=== PATIENT | male | born 1950 | race Caucasian/White ===

== ENCOUNTER 2018-05-28 19:31 | Inpatient (IN) | payer MEDICARE, OTHER ==
[~2018-05-28] VITALS: Ht 190.5 cm; Wt 81.8 kg
[2018-05-28 19:53] LABS: BASOPHILS % (AUTO) 0.1 % (0-1); EOSINOPHILS # (AUTO) 0.1 X10'3 (0-0.9); EOSINOPHILS % (AUTO) 0.9 % (0-6); HEMATOCRIT 40.8 % (42.0-52.0); HEMOGLOBIN 13.8 g/dl (14.0-17.9); LYMPHOCYTES # (AUTO) 0.3 X10'3 (1.1-4.8); LYMPHOCYTES % (AUTO) 3.1 % (21-51); MEAN CORPUSCULAR HEMOGLOBIN 32.2 PG (27.0-31.0); MEAN CORPUSCULAR HGB CONC 33.8 % (33.0-36.5); MEAN CORPUSCULAR VOLUME 95.2 FL (78-98); MEAN PLATELET VOLUME 9.5 FL (7.4-10.4); MONOCYTES # (AUTO) 0.2 X10'3 (0-0.9); MONOCYTES % (AUTO) 1.9 % (2-12); NEUTROPHILS # (AUTO) 8.3 X10'3 (1.8-7.7); PLATELET COUNT 202 X10'3 (140-440); RED BLOOD COUNT 4.29 X10'6 (4.70-6.10); RED CELL DISTRIBUTION WIDTH 13.3 % (11.5-14.5); WHITE BLOOD COUNT 8.9 X10'3 (4.5-11.0)
[2018-05-28 20:04] LABS: ALANINE AMINOTRANSFERASE 49 U/L (12-78); ALBUMIN 2.8 G/DL (3.4-5.0); ALBUMIN/GLOBULIN RATIO 0.7 (1.1-1.5); ALKALINE PHOSPHATASE 81 IU/L (46-116); ANION GAP 11 (8-16); ASPARTATE AMINO TRANSFERASE 87 U/L (10-37); BILIRUBIN,TOTAL 0.9 MG/DL (0.1-1.0); BLOOD UREA NITROGEN 10 MG/DL (7-18); BUN/CREATININE RATIO 7.6 (5.4-32.0); CALCIUM 8.3 MG/DL (8.5-10.1); CHLORIDE 101 MMOL/L (99-107); CREATININE 1.32 MG/DL (0.60-1.10); GLUCOSE 190 MG/DL (70-104); SODIUM 135 MMOL/L (135-145); TOTAL PROTEIN 6.7 G/DL (6.4-8.2); eGFR 54 ML/MIN
[2018-05-28 20:10] LABS: MAGNESIUM 1.8 MG/DL (1.5-2.4)
[2018-05-28] MEDS ORDERED: TIOT4MIS5 INH (20:34)
[2018-05-28] MEDS ORDERED: ALBU8HFA PO (20:34)
[2018-05-28] MEDS ORDERED: BUDE10.2 INH (20:34)
[2018-05-28] MEDS ORDERED: heparin 10,000 units/1 ML INJ IV ONE ×2 (21:10)
[2018-05-28 21:32] LABS: INR 1.1 INR; PARTIAL THROMBOPLASTIN TIME 37 SECONDS (22-32); PROTHROMBIN TIME 10.8 SECONDS (9.0-12.0)
[2018-05-28] MEDS: heparin 25,000 UNIT/250ml bag 250 ML IV SCH (21:47)
[2018-05-28] MEDS ORDERED: aspirin 325mg tablet PO ONE (22:10)
[2018-05-28 22:26] LABS: D-DIMER 1.08 MG/L FEU (0-0.50)
[2018-05-28] MEDS ORDERED: mag hydrox/Alum hydrox/simeth 30ml oral suspension PO PRN (22:35)
[2018-05-28] MEDS ORDERED: acetaminophen 325mg tablet PO PRN ×2 (22:35)
[2018-05-28] MEDS ORDERED: magnesium hydroxide 30ml (MOM) UD suspension PO PRN (22:35)
[2018-05-28] MEDS ORDERED: docusate sod 100mg capsule PO PRN (22:35)
[2018-05-28] MEDS ORDERED: haloperidol 5mg tablet PO PRN (23:25)
[2018-05-28] MEDS ORDERED: LORazepam 2 mg/ml vial IV PRN (23:25)
[2018-05-28] MEDS ORDERED: haloperidol lactate 5mg/ml inj IM PRN (23:25)
[2018-05-28] MEDS ORDERED: LORazepam 1 MG tablet PO PRN (23:25)
[2018-05-28 23:30] VITALS: BP 94/66
[2018-05-29] VITALS (7 sets, daily range): BP systolic 87–107; BP diastolic 60–81
[2018-05-29] MEDS: tirofiban 5mg in NS 100mL 100 ML IV SCH ×4 (00:10→20:09)
[2018-05-29] MEDS: morphine 2 MG/ML inj. syringe IV PRN ×3 (00:19→22:57)
[2018-05-29 02:15] LABS: BASOPHILS % (AUTO) 0.2 % (0-1); EOSINOPHILS # (AUTO) 0.1 X10'3 (0-0.9); EOSINOPHILS % (AUTO) 1.3 % (0-6); HEMATOCRIT 40.4 % (42.0-52.0); HEMOGLOBIN 13.7 g/dl (14.0-17.9); LYMPHOCYTES # (AUTO) 0.4 X10'3 (1.1-4.8); LYMPHOCYTES % (AUTO) 4.8 % (21-51); MEAN CORPUSCULAR HEMOGLOBIN 32.3 PG (27.0-31.0); MEAN CORPUSCULAR HGB CONC 33.8 % (33.0-36.5); MEAN CORPUSCULAR VOLUME 95.4 FL (78-98); MEAN PLATELET VOLUME 9.2 FL (7.4-10.4); MONOCYTES # (AUTO) 0.2 X10'3 (0-0.9); MONOCYTES % (AUTO) 2.8 % (2-12); NEUTROPHILS # (AUTO) 7.5 X10'3 (1.8-7.7); NEUTROPHILS % (AUTO) 90.9 % (42-75); PLATELET COUNT 210 X10'3 (140-440); RED BLOOD COUNT 4.23 X10'6 (4.70-6.10); RED CELL DISTRIBUTION WIDTH 13.1 % (11.5-14.5); WHITE BLOOD COUNT 8.3 X10'3 (4.5-11.0)
[2018-05-29 02:30] LABS: ALBUMIN 2.8 G/DL (3.4-5.0); ANION GAP 11 (8-16); BLOOD UREA NITROGEN 12 MG/DL (7-18); CALCIUM 8.4 MG/DL (8.5-10.1); CHLORIDE 101 MMOL/L (99-107); CHOL/HDL RATIO 2.1 (0.00-4.99); CHOLESTEROL 136 MG/DL (0-200); GLUCOSE 203 MG/DL (70-104); HDL CHOLESTEROL 66 MG/DL (35-60); LDL CHOLESTEROL 58 MG/DL (50-100); PHOSPHORUS 2.4 MG/DL (2.3-4.5); POTASSIUM 4.2 MMOL/L (3.5-5.1); SODIUM 135 MMOL/L (135-145); TOTAL CARBON DIOXIDE 22.7 MMOL/L (24-32); TRIGLYCERIDES 54 MG/DL (20-135); eGFR 60 ML/MIN
[2018-05-29 02:47] LABS: HEMOGLOBIN A1C 5.8 % (4.5-6.2)
[2018-05-29] MEDS: ipratropium/albuterol 3ml nebule NEB PRN ×3 (04:53→19:27)
[2018-05-29] MEDS: methylPREDNISolone sod succ/PF 40mg inj. IV SCH ×3 (07:59→15:54)
[2018-05-29] MEDS: thiamine 100mg tablet PO SCH (08:00)
[2018-05-29] MEDS ORDERED: CefTRIAXone 2gm/D5W 50ml 50 ML IV SCH (08:00)
[2018-05-29] MEDS ORDERED: azithromycin/NS 500mg/250ml 250 ML IV SCH (08:00)
[2018-05-29] MEDS: folic acid 1mg tablet PO SCH (08:00)
[2018-05-29] MEDS: multivitamins, therapeutics tablet PO SCH (08:00)
[2018-05-29] MEDS ORDERED: aspirin 325mg tablet PO SCH (08:30)
[2018-05-29] MEDS ORDERED: potassium Cl 40MEQ/NS 500ml 500 ML IV PRN ×2 (10:20)
[2018-05-29] MEDS ORDERED: magnesium Cl slow-release 64mg tablet PO PRN (10:20)
[2018-05-29] MEDS ORDERED: potassium Cl 20 mEq SR tablet PO PRN ×2 (10:20)
[2018-05-29] MEDS ORDERED: magnesium 4gm in 100ml NS 100 ML IV PRN (10:20)
[2018-05-29] MEDS: furosemide inj 100 MG in normal saline 100ml IV soln 90 ML IV SCH ×2 (12:07→21:10)
[2018-05-29] MEDS: heparin 25,000 UNIT/250ml bag 250 ML IV SCH ×2 (12:14→16:29)
[2018-05-29] MEDS: levoFLOXACIN-Levaquin 750MG/D5 150 ML IV SCH (12:23)
[2018-05-29] MEDS: heparin 10,000 units/1 ML INJ IV PRN (16:29)
[2018-05-29] MEDS: atorvastatin 20mg tablet PO SCH (17:35)
[2018-05-29] MEDS: lisinopril 10 MG tablet PO SCH (17:35)
[2018-05-29] MEDS ORDERED: iohexol 350 MG/ML 50ML vial IV ONE (19:49)
[2018-05-29] MEDS ORDERED: midazolam 2 mg/2 ml injection ONE (19:49)
[2018-05-29] MEDS ORDERED: iohexol 350MG/ML 100ml bottle IV ONE (19:49)
[2018-05-29] MEDS ORDERED: fentaNYL/PF 50MCG/1 ML 2ML syringe ONE (19:49)
[2018-05-29] MEDS ORDERED: LIDOcaine 1% (10mg/ml)w/preservative injection 20ml MDV ONE (19:49)
[2018-05-29] MEDS: carvedilol 6.25mg tablet PO SCH (20:00)
[2018-05-29] MEDS ORDERED: LIDOcaine 2% 10ml TOPICAL JELLY (Urojet) MM ONE (22:50)
[2018-05-29] MEDS ORDERED: HYDROcodone/acetaminophen 10/325mg tab PO PRN ×2 (23:00)
[2018-05-29] MEDS ORDERED: cyclobenzaprine 10mg tablet PO PRN (23:00)
[2018-05-29] MEDS ORDERED: magnesium hydroxide 30ml (MOM) UD suspension PO PRN (23:00)
[2018-05-29] MEDS ORDERED: nitroGLYCERIN 0.4mg SUBLingual tab SL PRN (23:00)
[2018-05-29] MEDS ORDERED: acetaminophen 325mg tablet PO PRN (23:00)
[2018-05-29] MEDS ORDERED: OXAZEpam 15mg capsule PO PRN (23:00)
[2018-05-30] VITALS (22 sets, daily range): BP systolic 78–104; BP diastolic 56–67
[2018-05-30] MEDS ORDERED: amiodarone 150mg/dext, iso-os 100 ML IV ONE (00:30)
[2018-05-30] MEDS: methylPREDNISolone sod succ/PF 40mg inj. IV SCH ×3 (01:03→16:25)
[2018-05-30] MEDS: amiodarone/D5 360MG/200ML BAG 200 ML IV SCH ×3 (01:03→19:42)
[2018-05-30] MEDS: morphine 4 MG/ML inj SYRINge IV PRN ×2 (01:04→07:28)
[2018-05-30 01:17] LABS: ALBUMIN 3.1 G/DL (3.4-5.0); ANION GAP 8 (8-16); BLOOD UREA NITROGEN 23 MG/DL (7-18); BUN/CREATININE RATIO 18.1 (5.4-32.0); CALCIUM 8.8 MG/DL (8.5-10.1); CHLORIDE 100 MMOL/L (99-107); CREATININE 1.27 MG/DL (0.60-1.10); GLUCOSE 151 MG/DL (70-104); POTASSIUM 4.2 MMOL/L (3.5-5.1); SODIUM 137 MMOL/L (135-145); TOTAL CARBON DIOXIDE 29.2 MMOL/L (24-32); eGFR 57 ML/MIN
[2018-05-30] MEDS: tirofiban 5mg in NS 100mL 100 ML IV SCH ×4 (02:57→19:41)
[2018-05-30 04:21] LABS: BASOPHILS % (AUTO) 0.3 % (0-1); EOSINOPHILS # (AUTO) 0.2 X10'3 (0-0.9); EOSINOPHILS % (AUTO) 1.3 % (0-6); HEMATOCRIT 43.2 % (42.0-52.0); HEMOGLOBIN 14.5 g/dl (14.0-17.9); LYMPHOCYTES # (AUTO) 0.5 X10'3 (1.1-4.8); MEAN CORPUSCULAR HEMOGLOBIN 32.2 PG (27.0-31.0); MEAN CORPUSCULAR HGB CONC 33.6 % (33.0-36.5); MEAN CORPUSCULAR VOLUME 95.6 FL (78-98); MEAN PLATELET VOLUME 9.5 FL (7.4-10.4); MONOCYTES # (AUTO) 0.9 X10'3 (0-0.9); MONOCYTES % (AUTO) 6.8 % (2-12); NEUTROPHILS % (AUTO) 87.6 % (42-75); PLATELET COUNT 259 X10'3 (140-440); RED BLOOD COUNT 4.52 X10'6 (4.70-6.10); RED CELL DISTRIBUTION WIDTH 13.1 % (11.5-14.5); WHITE BLOOD COUNT 12.6 X10'3 (4.5-11.0)
[2018-05-30 04:47] LABS: ALBUMIN 3.1 G/DL (3.4-5.0); ANION GAP 10 (8-16); BLOOD UREA NITROGEN 24 MG/DL (7-18); BUN/CREATININE RATIO 18.9 (5.4-32.0); CALCIUM 9.2 MG/DL (8.5-10.1); CHLORIDE 100 MMOL/L (99-107); CHOL/HDL RATIO 2.2 (0.00-4.99); CHOLESTEROL 163 MG/DL (0-200); CREATININE 1.27 MG/DL (0.60-1.10); GLUCOSE 156 MG/DL (70-104); HDL CHOLESTEROL 75 MG/DL (35-60); LDL CHOLESTEROL 71 MG/DL (50-100); MAGNESIUM 2.2 MG/DL (1.5-2.4); PHOSPHORUS 3.7 MG/DL (2.3-4.5); POTASSIUM 3.9 MMOL/L (3.5-5.1); SODIUM 138 MMOL/L (135-145); TOTAL CARBON DIOXIDE 28.4 MMOL/L (24-32); TRIGLYCERIDES 72 MG/DL (20-135); eGFR 57 ML/MIN
[2018-05-30] MEDS: heparin 10,000 units/1 ML INJ IV PRN (05:19)
[2018-05-30] MEDS: nicotine 21mg patch - 24 hr TD SCH ×2 (07:12→08:00)
[2018-05-30] MEDS: lisinopril 10 MG tablet PO SCH (08:00)
[2018-05-30] MEDS: levoFLOXACIN-Levaquin 750MG/D5 150 ML IV SCH (08:27)
[2018-05-30 11:23] LABS: ALBUMIN 2.9 G/DL (3.4-5.0); ANION GAP 12 (8-16); BLOOD UREA NITROGEN 28 MG/DL (7-18); BUN/CREATININE RATIO 20.9 (5.4-32.0); CALCIUM 8.8 MG/DL (8.5-10.1); CHLORIDE 99 MMOL/L (99-107); CREATININE 1.34 MG/DL (0.60-1.10); GLUCOSE 139 MG/DL (70-104); POTASSIUM 3.9 MMOL/L (3.5-5.1); SODIUM 139 MMOL/L (135-145); TOTAL CARBON DIOXIDE 28.4 MMOL/L (24-32); eGFR 53 ML/MIN
[2018-05-30] MEDS: carvedilol 6.25mg tablet PO SCH ×2 (12:13→20:00)
[2018-05-30] MEDS: folic acid 1mg tablet PO SCH (12:13)
[2018-05-30] MEDS: aspirin 81mg tablet.DR PO SCH (12:13)
[2018-05-30] MEDS: atorvastatin 20mg tablet PO SCH (12:13)
[2018-05-30] MEDS: multivitamins, therapeutics tablet PO SCH (12:13)
[2018-05-30] MEDS: pantoprazole 40mg Tablet.DR PO SCH (12:14)
[2018-05-30] MEDS: thiamine 100mg tablet PO SCH (12:14)
[2018-05-30] MEDS: docusate sod 100mg capsule PO SCH ×2 (12:14→20:00)
[2018-05-30] MEDS: heparin 25,000 UNIT/250ml bag 250 ML IV SCH (12:27)
[2018-05-30] MEDS: ipratropium/albuterol 3ml nebule NEB PRN (15:41)
[2018-05-30 16:04] LABS: ALBUMIN 2.8 G/DL (3.4-5.0); ANION GAP 10 (8-16); BLOOD UREA NITROGEN 30 MG/DL (7-18); BUN/CREATININE RATIO 22.7 (5.4-32.0); CALCIUM 8.9 MG/DL (8.5-10.1); CHLORIDE 100 MMOL/L (99-107); CREATININE 1.32 MG/DL (0.60-1.10); GLUCOSE 133 MG/DL (70-104); SODIUM 139 MMOL/L (135-145); TOTAL CARBON DIOXIDE 29.2 MMOL/L (24-32); eGFR 54 ML/MIN
[2018-05-30 16:12] LABS: POTASSIUM 4.1 MMOL/L (3.5-5.1)
[2018-05-30] MEDS: lactobacillus rhamnosus 10,000 MMU CELLS/CAPSULE PO SCH (20:00)
[2018-05-31] VITALS (24 sets, daily range): BP systolic 75–115; BP diastolic 53–80
[2018-05-31] MEDS: methylPREDNISolone sod succ/PF 40mg inj. IV SCH ×3 (00:54→15:32)
[2018-05-31] MEDS: heparin 25,000 UNIT/250ml bag 250 ML IV SCH ×2 (03:17→10:44)
[2018-05-31 05:07] LABS: BASOPHILS # (AUTO) 0.1 X10'3 (0-0.2); BASOPHILS % (AUTO) 0.6 % (0-1); EOSINOPHILS # (AUTO) 0.1 X10'3 (0-0.9); EOSINOPHILS % (AUTO) 0.5 % (0-6); HEMATOCRIT 40.2 % (42.0-52.0); HEMOGLOBIN 13.3 g/dl (14.0-17.9); LYMPHOCYTES # (AUTO) 0.6 X10'3 (1.1-4.8); LYMPHOCYTES % (AUTO) 5.8 % (21-51); MEAN CORPUSCULAR HEMOGLOBIN 31.8 PG (27.0-31.0); MEAN CORPUSCULAR HGB CONC 33.1 % (33.0-36.5); MEAN CORPUSCULAR VOLUME 96.1 FL (78-98); MEAN PLATELET VOLUME 9.5 FL (7.4-10.4); MONOCYTES # (AUTO) 0.5 X10'3 (0-0.9); MONOCYTES % (AUTO) 4.9 % (2-12); NEUTROPHILS # (AUTO) 9.7 X10'3 (1.8-7.7); NEUTROPHILS % (AUTO) 88.2 % (42-75); PLATELET COUNT 227 X10'3 (140-440); RED BLOOD COUNT 4.18 X10'6 (4.70-6.10); RED CELL DISTRIBUTION WIDTH 13.9 % (11.5-14.5); WHITE BLOOD COUNT 11.1 X10'3 (4.5-11.0)
[2018-05-31 05:47] LABS: ALBUMIN 2.7 G/DL (3.4-5.0); ANION GAP 8 (8-16); BLOOD UREA NITROGEN 32 MG/DL (7-18); CALCIUM 8.9 MG/DL (8.5-10.1); CHLORIDE 100 MMOL/L (99-107); CREATININE 1.23 MG/DL (0.60-1.10); GLUCOSE 125 MG/DL (70-104); MAGNESIUM 2.6 MG/DL (1.5-2.4); PHOSPHORUS 3.6 MG/DL (2.3-4.5); SODIUM 138 MMOL/L (135-145); TOTAL CARBON DIOXIDE 30.5 MMOL/L (24-32); eGFR 59 ML/MIN
[2018-05-31] MEDS: tirofiban 5mg in NS 100mL 100 ML IV SCH ×3 (06:23→20:32)
[2018-05-31] MEDS: amiodarone/D5 360MG/200ML BAG 200 ML IV SCH ×4 (06:23→18:55)
[2018-05-31] MEDS: folic acid 1mg tablet PO SCH (07:50)
[2018-05-31] MEDS: multivitamins, therapeutics tablet PO SCH (07:50)
[2018-05-31] MEDS: lactobacillus rhamnosus 10,000 MMU CELLS/CAPSULE PO SCH ×2 (07:50→20:00)
[2018-05-31] MEDS: carvedilol 6.25mg tablet PO SCH ×2 (07:50→20:00)
[2018-05-31] MEDS: aspirin 81mg tablet.DR PO SCH (07:50)
[2018-05-31] MEDS: levoFLOXACIN-Levaquin 750MG/D5 150 ML IV SCH (07:50)
[2018-05-31] MEDS: thiamine 100mg tablet PO SCH (07:50)
[2018-05-31] MEDS: atorvastatin 20mg tablet PO SCH (07:50)
[2018-05-31] MEDS: pantoprazole 40mg Tablet.DR PO SCH (07:51)
[2018-05-31] MEDS: nicotine 21mg patch - 24 hr TD SCH (07:51)
[2018-05-31] MEDS: lisinopril 10 MG tablet PO SCH (07:51)
[2018-05-31] MEDS: docusate sod 100mg capsule PO SCH ×2 (07:51→20:00)
[2018-05-31] MEDS: morphine 4 MG/ML inj SYRINge IV PRN ×2 (14:02→20:32)
[2018-05-31] MEDS: ipratropium/albuterol 3ml nebule NEB PRN ×2 (16:06→20:21)
[2018-06-01] VITALS (24 sets, daily range): BP systolic 78–115; BP diastolic 55–75
[2018-06-01] MEDS: methylPREDNISolone sod succ/PF 40mg inj. IV SCH ×4 (00:14→23:48)
[2018-06-01] MEDS: amiodarone/D5 360MG/200ML BAG 200 ML IV SCH ×4 (00:59→19:11)
[2018-06-01 05:11] LABS: BASOPHILS # (AUTO) 0.2 X10'3 (0-0.2); BASOPHILS % (AUTO) 1.8 % (0-1); EOSINOPHILS % (AUTO) 0.5 % (0-6); HEMATOCRIT 39.6 % (42.0-52.0); LYMPHOCYTES # (AUTO) 0.7 X10'3 (1.1-4.8); LYMPHOCYTES % (AUTO) 7.2 % (21-51); MEAN CORPUSCULAR HEMOGLOBIN 31.4 PG (27.0-31.0); MEAN CORPUSCULAR HGB CONC 32.8 % (33.0-36.5); MEAN CORPUSCULAR VOLUME 95.8 FL (78-98); MEAN PLATELET VOLUME 9.4 FL (7.4-10.4); MONOCYTES # (AUTO) 0.4 X10'3 (0-0.9); MONOCYTES % (AUTO) 4.4 % (2-12); NEUTROPHILS # (AUTO) 7.9 X10'3 (1.8-7.7); NEUTROPHILS % (AUTO) 86.1 % (42-75); PLATELET COUNT 232 X10'3 (140-440); RED BLOOD COUNT 4.14 X10'6 (4.70-6.10); RED CELL DISTRIBUTION WIDTH 13.3 % (11.5-14.5); WHITE BLOOD COUNT 9.2 X10'3 (4.5-11.0)
[2018-06-01 05:23] LABS: ALBUMIN 2.5 G/DL (3.4-5.0); ANION GAP 6 (8-16); BLOOD UREA NITROGEN 31 MG/DL (7-18); BUN/CREATININE RATIO 28.2 (5.4-32.0); CALCIUM 8.8 MG/DL (8.5-10.1); CHLORIDE 102 MMOL/L (99-107); GLUCOSE 133 MG/DL (70-104); MAGNESIUM 2.5 MG/DL (1.5-2.4); PHOSPHORUS 3.6 MG/DL (2.3-4.5); POTASSIUM 4.2 MMOL/L (3.5-5.1); SODIUM 138 MMOL/L (135-145); TOTAL CARBON DIOXIDE 29.8 MMOL/L (24-32); eGFR 67 ML/MIN
[2018-06-01] MEDS: ipratropium/albuterol 3ml nebule NEB PRN ×2 (07:27→13:41)
[2018-06-01] MEDS: carvedilol 6.25mg tablet PO SCH ×2 (08:00→22:00)
[2018-06-01] MEDS: lisinopril 10 MG tablet PO SCH (08:00)
[2018-06-01] MEDS: nicotine 21mg patch - 24 hr TD SCH (08:00)
[2018-06-01] MEDS: docusate sod 100mg capsule PO SCH ×2 (08:06→20:00)
[2018-06-01] MEDS: atorvastatin 20mg tablet PO SCH (08:06)
[2018-06-01] MEDS: folic acid 1mg tablet PO SCH (08:06)
[2018-06-01] MEDS: pantoprazole 40mg Tablet.DR PO SCH (08:06)
[2018-06-01] MEDS: multivitamins, therapeutics tablet PO SCH (08:06)
[2018-06-01] MEDS: lactobacillus rhamnosus 10,000 MMU CELLS/CAPSULE PO SCH ×2 (08:06→22:00)
[2018-06-01] MEDS: aspirin 81mg tablet.DR PO SCH (08:06)
[2018-06-01] MEDS: thiamine 100mg tablet PO SCH (08:07)
[2018-06-01] MEDS: levoFLOXACIN-Levaquin 750MG/D5 150 ML IV SCH (08:07)
[2018-06-01] MEDS: tirofiban 5mg in NS 100mL 100 ML IV SCH ×2 (08:07→10:58)
[2018-06-01] MEDS: heparin 25,000 UNIT/250ml bag 250 ML IV SCH (10:01)
[2018-06-01] MEDS: morphine 4 MG/ML inj SYRINge IV PRN ×2 (17:02→23:55)
[2018-06-01] MEDS: ondansetron/PF 4mg/2ml inj IV PRN ×2 (19:18→23:48)
[2018-06-02] VITALS (11 sets, daily range): BP systolic 103–115; BP diastolic 70–82
[2018-06-02] MEDS ORDERED: pantoprazole 40 MG vial IV ONE (00:05)
[2018-06-02] MEDS: amiodarone/D5 360MG/200ML BAG 200 ML IV SCH ×2 (01:15→07:33)
[2018-06-02] MEDS: proCHLORperazine 10 MG/2 ml inj IV PRN ×2 (02:59→09:51)
[2018-06-02] MEDS: pantoprazole 40mg Tablet.DR PO SCH (07:30)
[2018-06-02] MEDS: multivitamins, therapeutics tablet PO SCH (08:00)
[2018-06-02] MEDS: nicotine 21mg patch - 24 hr TD SCH (08:00)
[2018-06-02] MEDS: thiamine 100mg tablet PO SCH (08:00)
[2018-06-02] MEDS ORDERED: clopidogrel 75mg tablet PO ONE (08:00)
[2018-06-02] MEDS: folic acid 1mg tablet PO SCH (08:00)
[2018-06-02] MEDS: atorvastatin 20mg tablet PO SCH (08:00)
[2018-06-02] MEDS: docusate sod 100mg capsule PO SCH (08:00)
[2018-06-02] MEDS ORDERED: amiodarone 200mg tablet PO SCH (08:00)
[2018-06-02] MEDS: lactobacillus rhamnosus 10,000 MMU CELLS/CAPSULE PO SCH (08:00)
[2018-06-02] MEDS: levoFLOXACIN-Levaquin 750MG/D5 150 ML IV SCH (08:29)
[2018-06-02] MEDS: aspirin 81mg tablet.DR PO SCH (08:30)
[2018-06-02] MEDS: carvedilol 6.25mg tablet PO SCH (08:31)
[2018-06-02] MEDS: ondansetron/PF 4mg/2ml inj IV PRN (08:31)
[2018-06-02] MEDS: methylPREDNISolone sod succ/PF 40mg inj. IV SCH (08:31)
[2018-06-02] MEDS: lisinopril 10 MG tablet PO SCH (08:31)
[2018-06-02] MEDS ORDERED: NICO-687 TD (08:56)
[2018-06-02] MEDS ORDERED: CLOP75TA35 PO (08:56)
[2018-06-02] MEDS ORDERED: ATOR20TA66 PO (08:56)
[2018-06-02] MEDS ORDERED: CYCL-1 PO (08:56)
[2018-06-02] MEDS ORDERED: AMIO200T40 PO (08:56)
[2018-06-02] MEDS ORDERED: CARV6.253 PO (08:57)
[2018-06-02] MEDS ORDERED: PRED10TA PO (08:57)
[2018-06-02] MEDS ORDERED: NITR0.4T51 SL (08:57)
[2018-06-02] MEDS ORDERED: ONDA4TAB9 PO (08:57)
[2018-06-02] MEDS ORDERED: HYDR-3972 PO (08:57)
[2018-06-02] MEDS ORDERED: LISI10TA4 PO (08:57)
[2018-06-02] MEDS ORDERED: ASPI-1071 PO (08:57)
[2018-06-02] MEDS: morphine 4 MG/ML inj SYRINge IV PRN (09:51)
[2018-06-02] MEDS ORDERED: HYDR-4353 PO ×4 (10:31→10:44)
[2018-06-03] MEDS ORDERED: clopidogrel 75mg tablet PO SCH (08:00)
== END 2018-06-02 10:30 | disposition hospice, home (50) | DRG 270 ==
LOC: ER 19:31 → ED HOLD 22:33 → PCU 3S 23:38 → CICU 2S 05-29 21:00
PROVIDERS: ADMIT Internal Medicine; ATTEND Internal Medicine Critical Care Medicine
PROC: 5A02210 Assistance with Cardiac Output using Balloon Pump, Continuous (ICD-10-PCS; principal; 2018-05-29)
PROC: 4A023N7 Measurement of Cardiac Sampling and Pressure, Left Heart, Percutaneous Approach (ICD-10-PCS; 2018-05-29)
PROC: B2111ZZ Fluoroscopy of Multiple Coronary Arteries using Low Osmolar Contrast (ICD-10-PCS; 2018-05-29)
PROC: B2151ZZ Fluoroscopy of Left Heart using Low Osmolar Contrast (ICD-10-PCS; 2018-05-29)
PROC: B3101ZZ Fluoroscopy of Thoracic Aorta using Low Osmolar Contrast (ICD-10-PCS; 2018-05-29)
PROC: B3111ZZ Fluoroscopy of Right Brachiocephalic-Subclavian Artery using Low Osmolar Contrast (ICD-10-PCS; 2018-05-29)
PROC: B31N1ZZ Fluoroscopy of Other Upper Arteries using Low Osmolar Contrast (ICD-10-PCS; 2018-05-29)
DX: I21.4 Non-ST elevation (NSTEMI) myocardial infarction (principal); J18.1 Lobar pneumonia, unspecified organism; J44.1 Chronic obstructive pulmonary disease with (acute) exacerbation; J44.0 Chronic obstructive pulmonary disease with (acute) lower respiratory infection; I50.9 Heart failure, unspecified; E78.5 Hyperlipidemia, unspecified; I11.0 Hypertensive heart disease with heart failure; I25.10 Atherosclerotic heart disease of native coronary artery without angina pectoris; R73.9 Hyperglycemia, unspecified; I25.5 Ischemic cardiomyopathy; I34.0 Nonrheumatic mitral (valve) insufficiency; R73.03 Prediabetes; D64.9 Anemia, unspecified; F17.210 Nicotine dependence, cigarettes, uncomplicated; Z66 Do not resuscitate; I25.2 Old myocardial infarction; Z91.19 Patient's noncompliance with other medical treatment and regimen; Z79.82 Long term (current) use of aspirin; Z79.51 Long term (current) use of inhaled steroids; Z71.6 Tobacco abuse counseling
CPT/HCPCS: 33967; 36415; 71045; 71250; 80048; 80053; 80061; 83036; 83735; 83880; 84100; 84484; 85025; 85379; 85610; 85730; 87070; 93005; 93308; 93458; 93880; 93971; 94640; 94760; 99152; 99153; 99285; A4620; A6257; C1725; C1769; C9113; G0378; J0282; J0456; J0696; J0780; J1644; J1940; J1956; J2001; J2250; J2270; J2405; J2920; J3010; J3246; J3480; J7030; Q9967